=== PATIENT | male | born 1945 | race Caucasian/White ===

== ENCOUNTER 2016-10-28 20:04 | Emergency (ER) | payer MEDICARE, OTHER ==
[2014-07-19 13:03] VITALS: BMI 35.2
[~2016-10-28 20:04] MED LIST: ASCORBIC ACID500 MG PO; BENEFIBER1 PKT PO; BILBERRY100 MG PO; CALCIUM 600+D T1 TA1 PO; COUMADIN5 MG PO; DIABETA5 MG PO; DILAUDID4 MG PO; FISH OIL 1,2001 CAP PO; FLOMAX0.4 MG PO; GLUCOTROL 5 MG T5 MG PO; K-TAB10 MEQ PO; LASIX20 MG PO; LEVAQUIN500 MG PO; LEXAPRO20 MG PO; OCUVITE TABLET1 TA1 PO; PROSCAR5 MG PO; SUPER B COMPLE150 MG PO; VASOTEC10 MG PO; ZOCOR40 MG PO
[2016-10-28 21:32] LABS: BASOPHILS 0.3 % (0-2); EOSINOPHILS 2.4 % (0-7); HEMATOCRIT 38.3 % (42.0-54.0); HEMOGLOBIN 12.5 g/dL (13.5-17.5); IMMATURE GRANULOCYTES 0.3 % (0-5); MCH 31.4 pg (26.0-34.0); MCHC 32.6 g/dL (31.0-37.0); MCV 96.2 fL (80.0-100.0); MEAN PLATELET VOLUME 10.6 fL (7.4-10.4); PLATELET COUNT 133 10x3/uL (130-400); RBC 3.98 10x6/uL (4.20-6.10); RDW 13.5 % (11.5-14.5); WBC 6.6 10x3/uL (4.8-10.8)
[2016-10-28 21:39] LABS: INR 2.71 (0.85-1.17); PROTIME 28.9 SECONDS (11.6-15.0)
[2016-10-28 21:47] LABS: ALBUMIN 3.4 g/dL (3.4-5.0); ALKALINE PHOSPHATASE 68 U/L (46-116); ALT (SGPT) 32 U/L (10-68); BILIRUBIN - TOTAL 0.24 mg/dL (0.2-1.3); CALC OSMOLALITY 292 mosm/kg (275-300); CALCIUM 8.6 mg/dL (8.5-10.1); CARBON DIOXIDE 29.5 mmol/L (21.0-32.0); CHLORIDE - SERUM 107 mmol/L (98-107); CREATININE - SERUM 1.4 mg/dL (0.6-1.3); GLUCOSE 207 mg/dL (74-106); POTASSIUM - SERUM 4.3 mmol/L (3.5-5.1); PROTEIN - SERUM 6.9 g/dL (6.4-8.2); SODIUM 142 mmol/L (136-145); UREA NITROGEN 23 mg/dL (7-18); eGFR NON AFRICAN AMERICAN 53 mL/min (90-120)
[2016-10-28 21:55] LABS: TROPONIN-I < 0.017 ng/mL (0.000-0.060)
== END 2016-10-29 00:35 | disposition home or self-care (01) ==
LOC: D.ER 20:04
PROVIDERS: Nurse Practitioner Family
DX: I10 Essential (primary) hypertension (principal)

== ENCOUNTER 2017-08-10 13:23 | Outpatient (CLI) | payer MEDICARE, OTHER ==
[2014-07-19 13:03] VITALS: BMI 35.2
[2017-08-10 13:54] LABS: BASOPHILS 0.2 % (0-2); EOSINOPHILS 1.7 % (0-7); HEMATOCRIT 41.6 % (42.0-54.0); HEMOGLOBIN 12.7 g/dL (13.5-17.5); IMMATURE GRANULOCYTES 0.2 % (0-5); LYMPHOCYTES 15.5 % (15-50); MCH 30.8 pg (26.0-34.0); MCHC 30.5 g/dL (31.0-37.0); MEAN PLATELET VOLUME 10.9 fL (7.4-10.4); MONOCYTES 5.2 % (2-11); NEUTROPHILS 77.2 % (40-80); PLATELET COUNT 158 10x3/uL (130-400); RBC 4.12 10x6/uL (4.20-6.10); RDW 14.6 % (11.5-14.5); WBC 5.8 10x3/uL (4.8-10.8)
[2017-08-10 13:57] LABS: ALBUMIN 3.5 g/dL (3.4-5.0); ANION GAP 17.4 mmol/L (8-16); BILIRUBIN - TOTAL 0.21 mg/dL (0.2-1.3); CALCIUM 8.9 mg/dL (8.5-10.1); CARBON DIOXIDE 23.9 mmol/L (21.0-32.0); CREATININE - SERUM 1.5 mg/dL (0.6-1.3); POTASSIUM - SERUM 4.3 mmol/L (3.5-5.1); PROTEIN - SERUM 6.6 g/dL (6.4-8.2)
== END 2017-08-10 13:24 | disposition home or self-care (01) ==
LOC: D.LABREF 13:23
PROVIDERS: Emergency Medicine
DX: E11.9 Type 2 diabetes mellitus without complications (principal); J44.9 Chronic obstructive pulmonary disease, unspecified; I25.10 Atherosclerotic heart disease of native coronary artery without angina pectoris; I10 Essential (primary) hypertension

== ENCOUNTER → 2017-08-25 13:47 | Outpatient (CLI) | payer MEDICARE, OTHER ==
[2014-07-19 13:03] VITALS: BMI 35.2
[2017-09-02 15:17] LABS: RMSF IGM 0.25 index (0.00-0.89)
== END | disposition home or self-care (01) ==
LOC: D.LABREF 13:47
PROVIDERS: Emergency Medicine
DX: E11.51 Type 2 diabetes mellitus with diabetic peripheral angiopathy without gangrene (principal); Z86.79 Personal history of other diseases of the circulatory system; J44.9 Chronic obstructive pulmonary disease, unspecified

== ENCOUNTER 2018-06-25 22:55 | Emergency (ER) | payer MEDICARE, OTHER ==
[~2018-06-25] VITALS: Ht 182.9 cm; Wt 120.2 kg
[2018-06-25 22:59] VITALS: Ht 182.9 cm; Wt 120.2 kg
[2018-06-25] MEDS ORDERED: BUPROPION HCL200 M1 PO (23:14)
[2018-06-26 00:32] LABS: HEMATOCRIT 37.4 % (42.0-54.0); HEMOGLOBIN 12.6 g/dL (13.5-17.5); LYMPHOCYTES 20.9 % (15-50); MCHC 33.7 g/dL (31.0-37.0); MCV 91.9 fL (80.0-100.0); MEAN PLATELET VOLUME 9.9 fL (7.4-10.4); NEUTROPHILS 72.7 % (40-80); PLATELET COUNT 134 10x3/uL (130-400); RBC 4.07 10x6/uL (4.20-6.10); RDW 13.1 % (11.5-14.5); WBC 6.7 10x3/uL (4.8-10.8)
[2018-06-26 00:45] LABS: ALBUMIN 3.4 g/dL (3.4-5.0); ALKALINE PHOSPHATASE 70 U/L (46-116); ALT (SGPT) 30 U/L (10-68); BILIRUBIN - TOTAL 0.23 mg/dL (0.2-1.3); CALC OSMOLALITY 290 mosm/kg (275-300); CALCIUM 8.7 mg/dL (8.5-10.1); CARBON DIOXIDE 27.1 mmol/L (21.0-32.0); CHLORIDE - SERUM 105 mmol/L (98-107); CREATININE - SERUM 1.6 mg/dL (0.6-1.3); POTASSIUM - SERUM 4.7 mmol/L (3.5-5.1); PROTEIN - SERUM 7.2 g/dL (6.4-8.2); SODIUM 141 mmol/L (136-145); UREA NITROGEN 28 mg/dL (7-18); eGFR NON AFRICAN AMERICAN 45 mL/min (90-120)
[2018-06-26 00:48] LABS: GLUCOSE 164 mg/dL (74-106)
[2018-06-26 00:49] LABS: TROPONIN-I < 0.017 ng/mL (0.000-0.060)
[2018-06-26 01:32] LABS: APPEARANCE CLEAR (CLEAR); BILIRUBIN NEGATIVE (NEGATIVE); COLOR YELLOW (YELLOW); GLUCOSE NEGATIVE (NEGATIVE); KETONE NEGATIVE (NEGATIVE); NITRITE NEGATIVE (NEGATIVE); PROTEIN NEGATIVE (NEGATIVE); UROBILINOGEN NORMAL (NORMAL)
[2018-06-26] MEDS ORDERED: CATAPRES0.1 MG PO (01:38)
[2018-06-26 01:55] VITALS: BP 161/60
== END 2018-06-26 00:55 | disposition home or self-care (01) ==
LOC: D.ER 22:55
PROVIDERS: Family Medicine
DX: I10 Essential (primary) hypertension (principal); N28.9 Disorder of kidney and ureter, unspecified